=== PATIENT | female | born 1995 | race Two or more races ===

== ENCOUNTER 2020-07-03 17:38 | Emergency (ER) | payer OTHER ==
[~2020-07-03] VITALS: Ht 162.6 cm; Wt 61.1 kg
[2020-07-03] MEDS ORDERED: SODIUM CHLORIDE 0.9% 1,000 ML IV ONE (18:00)
[2020-07-03] MEDS ORDERED: SODIUM CHLORIDE FLUSH 10ML SYR IVF ONE (18:00)
[2020-07-03] MEDS ORDERED: ONDANSETRON 2MG/ML, 2ML IVPush ONE (18:00)
[2020-07-03] MEDS ORDERED: SODIUM CHLORIDE 0.9% 1,000ML IVBOLUS ONE (18:00)
[2020-07-03] MEDS ORDERED: ONDANSETRON 2MG/ML, 2ML ONE (18:07)
--- NOTE | 2020-07-03 18:09 | NUR ---
C/O TIREDNESS, APPETITE CHANGES, VOMITING YELLOWISH PHLEGM. STATES SHE'S 7 WKS PG. NO OB APPT SCHEDULED, YET. DENIES PAIN. AB0
[2020-07-03 18:15] LABS: BASOPHILS % (AUTO) 1 % (0-1); EOSINOPHILS % (AUTO) 1 % (1-7); LYMPHOCYTES % (AUTO) 22 % (22-44); MEAN CORPUSCULAR HEMOGLOBIN 32.1 pg (27.0-34.8); MEAN CORPUSCULAR HGB CONC 33.9 g/dL (32.4-35.8); MONOCYTES % (AUTO) 5 % (2-9); NEUTROPHILS % (AUTO) 72 % (42-75); PLATELET COUNT 263 x10^3/uL (130-400); RED BLOOD COUNT 4.28 x10^6/uL (3.82-5.3); RED CELL DISTRIBUTION WIDTH 12.5 % (9.6-15.2)
--- NOTE | 2020-07-03 18:24 | NUR ---
TO [facility] PER [facility]
[2020-07-03 18:28] LABS: ALANINE AMINOTRANSFERASE 35 U/L (12-78); ALBUMIN 3.6 g/dL (3.4-5.0); ANION GAP 6 mmol/L (5-15); CALCIUM 8.7 mg/dL (8.5-10.1); CHLORIDE 109 mmol/L (98-107); CREATININE 0.65 mg/dL (0.55-1.02)
[2020-07-03 18:31] LABS: MD NO
[2020-07-03 18:42] LABS: MICROSCOPIC AUTO
[2020-07-03 18:45] LABS: ALKALINE PHOSPHATASE 84 U/L (45-117); BILIRUBIN,TOTAL 0.3 mg/dL (0.2-1.0); TOTAL PROTEIN 7.2 g/dL (6.4-8.2)
--- NOTE | 2020-07-03 18:52 | NUR ---
RETURNED FROM [facility]. NS INFUSING W-O; IV SITE PATENT. PT REPORTS DECREASED NAUSEA, "I DON'T FEEL WEAK ANYMORE"
[2020-07-03 19:58] VITALS: BP 104/57
== END 2020-07-03 20:58 | disposition home or self-care (01) ==
LOC: ED 19:28
DX: O23.11 Infections of bladder in pregnancy, first trimester (principal); R11.2 Nausea with vomiting, unspecified; R53.1 Weakness; Z3A.01 Less than 8 weeks gestation of pregnancy
CPT/HCPCS: 36415; 76801; 80053; 81001; 84702; 85025; 87086; 96361; 96374; 99284; J2405; J7030